=== PATIENT | male | born 1945 | race Caucasian/White ===

== ENCOUNTER 2022-01-22 15:30 | Emergency (ER) | payer BC ==
[~2022-01-22] VITALS: Ht 177.8 cm; Wt 72.6 kg
[2022-01-22 15:36] VITALS: BP_SYST 114
[2022-01-22 17:57] LABS: WHITE BLOOD COUNT (AUTO) 2.5 K/uL (4.8-10.8)
[2022-01-22 18:08] LABS: ALANINE AMINOTRANSFERASE 14 U/L (12-78); ALBUMIN 3.7 g/dL (3.4-4.8); ASPARTATE AMINOTRANSFERASE 20 U/L (10-37); CALCIUM 9.2 mg/dL (8.4-11.0); CREATININE 1.27 mg/dL (0.55-1.30); GLUCOSE 96 mg/dL (70-99); TOTAL BILIRUBIN 0.4 mg/dL (0.0-1.0); UREA NITROGEN, BLOOD 22 mg/dL (8-21)
[2022-01-22 18:14] LABS: ANION GAP 6 (5-15); CHLORIDE 100 mmol/L (98-107); POTASSIUM 3.6 mmol/L (3.5-5.1); SODIUM SERUM 135 mmol/L (136-145)
[2022-01-22 19:07] LABS: HEMATOCRIT 29.8 % (36-54); HEMOGLOBIN 9.7 g/dL (14.0-18.0); MEAN CORPUSCULAR HEMOGLOBIN 24 pg (27-31); MEAN CORPUSCULAR HGB CONC 33 % (32-36); MEAN CORPUSCULAR VOLUME 74 fL (79.0-98.0); RED BLOOD CELL COUNT(AUTO) 4.03 MIL/uL (4.2-6.2); RED CELL DISTRIBUTION WIDTH 24.8 % (9.0-15.0)
[2022-01-22 19:33] LABS: PLATELET COUNT (AUTO) 11 K/uL (130-430)
[2022-01-22 19:51] LABS: ATYPICAL LYMPHOCYTES % 23 % (0-0); BAND % (MANUAL) 1 % (0-6); BASOPHILS % (MANUAL) 0 % (0-2); EOSINOPHILS % (MANUAL) 5 % (0-7); LYMPHOCYTES % (MANUAL) 15 % (20-46); MONOCYTES % (MANUAL) 20 % (0-11)
[2022-01-23 04:00] VITALS: BP_SYST 110
== END 2022-01-23 04:10 | disposition home or self-care (01) ==
LOC: SED 15:30
DX: D69.6 Thrombocytopenia, unspecified (principal); R42 Dizziness and giddiness; Z79.899 Other long term (current) drug therapy
CPT/HCPCS: 99285; 36430; 85027; 80053; 85007; 86886; 86900; 86901; 36415; P9034